=== PATIENT | female | born 1955 | race Two or more races ===

== ENCOUNTER → 2018-01-09 | Outpatient (CLI) | payer MEDICAID ==
[~2018-01-09] MED LIST: ALPR1TAB2 PO; ALPR2TAB2 PO; CYCL1TAB18 PO; LEVO75TA50 PO
[2018-01-09 12:40] VITALS: BP 141/82
[2018-01-09 13:05] VITALS: BP 128/89
[2018-01-09 16:10] LABS: Basophils # (auto) 0 uL; Basophils % (auto) 0.7 % (0.0-2.0); Eosinophils # (auto) 0.1 uL; Eosinophils % (auto) 2.6 % (0.0-7.0); Hematocrit 36.2 % (36.0-46.0); Hemoglobin 12.7 g/dL (12.2-16.2); Lymphocytes # (auto) 1.3 uL; Lymphocytes % (auto) 24.2 % (10.0-50.0); Mean Corpuscular Hemoglobin 31.9 pg (28.0-32.0); Mean Corpuscular Hgb Conc. 35.1 g/dL (32.0-36.0); Monocytes # (auto) 0.4 uL; Monocytes % (auto) 7.3 % (0.0-12.0); Neutrophils # (auto) 3.5 uL; Neutrophils % (auto) 65.2 % (37.0-80.0); Nucleated Red Blood Cells % 0.3 %; Platelet Count (auto) 270 10^3/uL (140-450); Red Blood Cells 3.98 10^6/uL (4.0-5.20); Red Cell Distribution Width 13.3 % (11.8-14.3); White Blood Cell 5.4 10^3/uL (4.4-10.8)
[2018-01-09 16:37] LABS: Albumin 3.3 g/dL (3.4-5.0); BUN/Creatinine Ratio 4.8; Calcium 7.9 mg/dL (8.5-10.1); Magnesium 2.5 mg/dL (1.6-2.6); Potassium 3.5 mmol/L (3.5-5.1)
[2018-01-09 16:40] LABS: Bilirubin, Total 0.3 mg/dL (0.2-1.0); Total Protein 6.8 g/dL (6.4-8.2)
== END | disposition home or self-care (01) ==
LOC: CHF HDHVI 12:43
PROVIDERS: ATTEND Internal Medicine Cardiovascular Disease
DX: E03.9 Hypothyroidism, unspecified (principal); D64.9 Anemia, unspecified; E83.40 Disorders of magnesium metabolism, unspecified; I10 Essential (primary) hypertension; R42 Dizziness and giddiness
CPT/HCPCS: 36415; 80053; 83735; 84443; 85025; G0463

== ENCOUNTER → 2018-10-21 | Outpatient (CLI) | payer MEDICAID | END | disposition home or self-care (01) | LOC: Rad HDHVI 07:57 | PROVIDERS: ATTEND Internal Medicine Cardiovascular Disease | DX: I67.2 Cerebral atherosclerosis (principal); J44.9 Chronic obstructive pulmonary disease, unspecified; J20.0 Acute bronchitis due to Mycoplasma pneumoniae; I63.9 Cerebral infarction, unspecified | CPT/HCPCS: 70450; 93306 ==

== ENCOUNTER → 2018-11-05 | Outpatient (CLI) | payer MEDICAID ==
[~2018-11-05] VITALS: Ht 160 cm; Wt 56.7 kg
[~2018-11-05] MED LIST changes: +ADENOSINE 48 MG in GIVE UN-DILUTED 0 ML IV ONE; +ADENOSINE 90 MG/30 ML INJ IV ONE
== END | disposition home or self-care (01) ==
LOC: Rad HDHVI 07:58
PROVIDERS: ATTEND Internal Medicine Cardiovascular Disease
DX: J44.9 Chronic obstructive pulmonary disease, unspecified (principal); R00.2 Palpitations; I20.0 Unstable angina; R07.9 Chest pain, unspecified; R42 Dizziness and giddiness; I49.5 Sick sinus syndrome; Z95.0 Presence of cardiac pacemaker
CPT/HCPCS: 78452; 93005; 96374; 96375; A9500; J0153

== ENCOUNTER 2019-04-22 20:18 | Emergency (ER) | payer MEDICAID ==
[~2019-04-22] VITALS: Ht 160 cm; Wt 54.0 kg
[~2019-04-22 20:18] MED LIST changes: -ADENOSINE 48 MG in GIVE UN-DILUTED 0 ML IV ONE; -ADENOSINE 90 MG/30 ML INJ IV ONE
[2019-04-22 21:05] LABS: Basophils # (auto) 0.1 uL; Eosinophils # (auto) 0.1 uL; Eosinophils % (auto) 2.7 % (0.0-7.0); Hematocrit 38.8 % (36.0-46.0); Hemoglobin 13.1 g/dL (12.2-16.2); Lymphocytes % (auto) 37.2 % (10.0-50.0); Mean Corpuscular Hemoglobin 30.6 pg (28.0-32.0); Mean Corpuscular Hgb Conc. 33.7 g/dL (32.0-36.0); Mean Corpuscular Volume 90.9 fL (80.0-100.0); Monocytes # (auto) 0.4 uL; Monocytes % (auto) 8.5 % (0.0-12.0); Neutrophils # (auto) 2.7 uL; Neutrophils % (auto) 50.6 % (37.0-80.0); Nucleated Red Blood Cells % 0.1 %; Platelet Count (auto) 219 10^3/uL (140-450); Red Blood Cells 4.26 10^6/uL (4.0-5.20); Red Cell Distribution Width 12.9 % (11.8-14.3); White Blood Cell 5.3 10^3/uL (4.4-10.8)
[2019-04-22 21:19] LABS: Albumin 3.8 g/dL (3.4-5.0); Anion Gap 5 (5-15); Blood Urea Nitrogen 9 mg/dL (7-18); Carbon Dioxide 29 mmol/L (21-32); Chloride 109 mmol/L (98-107); Glucose 102 mg/dL (74-106); Magnesium 2.4 mg/dL (1.6-2.6); Potassium 3.7 mmol/L (3.5-5.1); Sodium 143 mmol/L (136-145)
[2019-04-22 21:26] LABS: Alanine Aminotransferase 15 U/L (13-56); Alkaline Phosphatase 85 U/L (45-117); Aspartate Aminotransferase 18 U/L (15-37); BUN/Creatinine Ratio 7.8; Bilirubin, Total 0.4 mg/dL (0.2-1.0); GFR African American 62 mL/min; GFR Non-African American 51 mL/min; Total Protein 7.1 g/dL (6.4-8.2)
[2019-04-23 03:00] VITALS: BP 123/68
== END 2019-04-23 03:45 | disposition home or self-care (01) ==
LOC: ER 20:18
DX: T82.897A Other specified complication of cardiac prosthetic devices, implants and grafts, initial encounter (principal); R53.1 Weakness; J44.9 Chronic obstructive pulmonary disease, unspecified; I10 Essential (primary) hypertension; Z90.49 Acquired absence of other specified parts of digestive tract; Z90.710 Acquired absence of both cervix and uterus; Z88.0 Allergy status to penicillin; Z88.6 Allergy status to analgesic agent; Z79.899 Other long term (current) drug therapy; W86.8XXA Exposure to other electric current, initial encounter; Y93.89 Activity, other specified; Y92.89 Other specified places as the place of occurrence of the external cause; Y99.8 Other external cause status
CPT/HCPCS: 36415; 71046; 80053; 83735; 83880; 84484; 85025; 93005

== ENCOUNTER → 2019-11-04 | Outpatient (CLI) | payer MEDICAID | END | disposition home or self-care (01) | LOC: Rad HDHVI 08:56 | PROVIDERS: ATTEND Internal Medicine Cardiovascular Disease | DX: I11.0 Hypertensive heart disease with heart failure (principal); I50.23 Acute on chronic systolic (congestive) heart failure; J44.9 Chronic obstructive pulmonary disease, unspecified | CPT/HCPCS: 93306 ==

== ENCOUNTER → 2020-03-30 | Outpatient (CLI) | payer MEDICAID ==
[~2020-03-30] MED LIST changes: +AMLO5TAB15 PO; +ASPI-543 PO; +CYCL10TA6 PO; -CYCL1TAB18 PO; +CYCL5TAB PO; +PANT40TA2 PO
[2020-03-30 10:22] VITALS: BP 132/80
--- NOTE | 2020-03-30 10:22 | NUR ---
PT. TO CLINIC FOR PRE OP CXR, LABS, AND EKG. EKG SHOWS A/V PACED RHYTHM WITH NO ECTOPY. VSS
--- NOTE | 2020-03-30 10:40 | NUR ---
Pre-Op Discharge Summary: See e-MAR for any medications given for this visit. Pre-op orders received and carried out per MD of EKG, LABS and chest xrays. Patient given a copy of EKG with instructions to go to [facility] out patient for further follow up care.
[2020-03-30 10:44] VITALS: BP 125/82
[2020-03-30 11:58] LABS: Basophils # (auto) 0 10 ^3/uL (0-0.2); Eosinophils # (auto) 0.1 10 ^3/uL (0-0.8); Eosinophils % (auto) 2.6 % (0.0-7.0); Hematocrit 40.7 % (36.0-46.0); Hemoglobin 13.7 g/dL (12.2-16.2); Lymphocytes # (auto) 1.4 10 ^3/uL (0.4-5.4); Lymphocytes % (auto) 26.7 % (10.0-50.0); Mean Corpuscular Hemoglobin 30.1 pg (28.0-32.0); Mean Corpuscular Hgb Conc. 33.6 g/dL (32.0-36.0); Mean Corpuscular Volume 89.7 fL (80.0-100.0); Monocytes # (auto) 0.4 10 ^3/uL (0-1.3); Monocytes % (auto) 7.5 % (0.0-12.0); Neutrophils # (auto) 3.2 10 ^3/uL (1.6-8.6); Neutrophils % (auto) 62.2 % (37.0-80.0); Nucleated Red Blood Cells % 0.1 %; Platelet Count (auto) 263 10^3/uL (140-450); Red Blood Cells 4.54 10^6/uL (4.0-5.20); Red Cell Distribution Width 12.5 % (11.8-14.3); White Blood Cell 5.2 10^3/uL (4.4-10.8)
[2020-03-30 12:13] LABS: Calcium 8.3 mg/dL (8.5-10.1); Potassium 3.2 mmol/L (3.5-5.1)
[2020-03-30 12:17] LABS: BUN/Creatinine Ratio 8.5
[2020-03-30 12:18] LABS: INR 0.96 (0.9-1.15); Partial Thromboplastin Time 26.2 sec (23.0-31.2)
== END | disposition home or self-care (01) ==
LOC: Rad HDHVI 09:57
PROVIDERS: ATTEND Internal Medicine Cardiovascular Disease
DX: Z01.812 Encounter for preprocedural laboratory examination (principal); I70.0 Atherosclerosis of aorta; Z95.0 Presence of cardiac pacemaker
CPT/HCPCS: 36415; 71046; 80048; 85025; 85610; 85730; 93005; G0463

== ENCOUNTER 2020-04-05 11:56 | Day surgery (SDC) | payer MEDICAID ==
[~2020-04-05] VITALS: Ht 160 cm; Wt 53.1 kg
[~2020-04-05 11:56] MED LIST changes: -ALPR2TAB2 PO
[2020-04-05] MEDS ORDERED: PHENYLEPHRINE HCL 10 MG/ML VL ONE (12:50)
[2020-04-05] MEDS ORDERED: ANGIOMAX 250 MG VIAL IV ONE (12:50)
[2020-04-05] MEDS ORDERED: GLYCOPYRROLATE 0.2 MG/ML 1ML VIAL ONE (12:51)
[2020-04-05] MEDS ORDERED: SODIUM CHL 0.9% 0 ML ONE (12:51)
[2020-04-05] MEDS ORDERED: IODIXANOL 320MG/ML 100ML BTL IV ONE (12:52)
[2020-04-05] MEDS ORDERED: LIDOCAINE 2%HCL (LOCAL ANESTH.) INJ 20ML MDV ONE (12:52)
[2020-04-05] MEDS ORDERED: ACETAMINOPHEN 500 MG TAB PO PRN (14:30)
[2020-04-05] MEDS ORDERED: ONDANSETRON HCL 4 MG/2 ML VIAL IV PRN (14:30)
== END 2020-04-05 16:34 | disposition home or self-care (01) ==
LOC: CATH 11:56
PROVIDERS: ATTEND Internal Medicine Cardiovascular Disease
DX: I65.21 Occlusion and stenosis of right carotid artery (principal); I62.9 Nontraumatic intracranial hemorrhage, unspecified; I10 Essential (primary) hypertension; I25.2 Old myocardial infarction; J44.9 Chronic obstructive pulmonary disease, unspecified; F32.9 Major depressive disorder, single episode, unspecified; F41.9 Anxiety disorder, unspecified; R09.1 Pleurisy; Z20.828 Contact with and (suspected) exposure to other viral communicable diseases; Z98.890 Other specified postprocedural states; Z79.899 Other long term (current) drug therapy; Z88.0 Allergy status to penicillin; Z88.5 Allergy status to narcotic agent; Z88.8 Allergy status to other drugs, medicaments and biological substances; Z90.710 Acquired absence of both cervix and uterus; Z80.0 Family history of malignant neoplasm of digestive organs
CPT/HCPCS: C1760; C1769; C1894; J1644; Q9967; U0003; 36224; 99152

== ENCOUNTER → 2020-11-11 | Outpatient (CLI) | payer MEDICAID ==
[~2020-11-11] MED LIST changes: +AMLO-489 PO; -AMLO5TAB15 PO; +LEV75T PO; -LEVO75TA50 PO
== END | disposition home or self-care (01) ==
LOC: Rad HDHVI 15:45
PROVIDERS: ATTEND Internal Medicine Cardiovascular Disease
DX: R00.2 Palpitations (principal); R07.89 Other chest pain
CPT/HCPCS: 93306

== ENCOUNTER → 2020-11-28 | Outpatient (CLI) | payer MEDICAID ==
[~2020-11-28] VITALS: Ht 157.5 cm; Wt 51.3 kg
[~2020-11-28] MED LIST changes: +ADENOSINE 6 MG/2 ML INJ IV ONE; +ADENOSINE 90 MG/30 ML INJ IV ONE; +D5W 5% IV SCH; +DIPYRIDAMOLE (5MG/ML) 10 ML VIAL IV ONE; +DIPYRIDAMOLE IV SCH
== END | disposition home or self-care (01) ==
LOC: Rad HDHVI 13:33
PROVIDERS: ATTEND Internal Medicine Cardiovascular Disease
DX: I48.0 Paroxysmal atrial fibrillation (principal); I10 Essential (primary) hypertension; E78.00 Pure hypercholesterolemia, unspecified; I25.2 Old myocardial infarction; Z95.0 Presence of cardiac pacemaker; Z82.49 Family history of ischemic heart disease and other diseases of the circulatory system
CPT/HCPCS: 78452; 93005; 96374; 96375; A9500; J1245; J0153

== ENCOUNTER 2021-02-07 18:44 | Emergency (ER) | payer MEDICAID ==
[~2021-02-07] VITALS: Ht 160 cm; Wt 49.9 kg
[2021-02-07 18:44] VITALS: BP 168/98
[~2021-02-07 18:44] MED LIST changes: -ADENOSINE 6 MG/2 ML INJ IV ONE; -ADENOSINE 90 MG/30 ML INJ IV ONE; -D5W 5% IV SCH; -DIPYRIDAMOLE (5MG/ML) 10 ML VIAL IV ONE; -DIPYRIDAMOLE IV SCH
== END 2021-02-07 19:38 | disposition left against medical advice (07) ==
LOC: ER 18:45
DX: R51.9 Headache, unspecified (principal); R42 Dizziness and giddiness; Z53.21 Procedure and treatment not carried out due to patient leaving prior to being seen by health care provider; W20.8XXA Other cause of strike by thrown, projected or falling object, initial encounter; Y93.89 Activity, other specified; Y92.89 Other specified places as the place of occurrence of the external cause; Y99.8 Other external cause status

== ENCOUNTER → 2023-04-22 | Outpatient (CLI) | payer MEDICARE, MEDICAID ==
[~2023-04-22] MED LIST changes: -AMLO-489 PO; +AMLO1TAB22 PO; +CYCL-837 PO; +CYCL-839 PO; -CYCL10TA6 PO; -CYCL5TAB PO
== END | disposition home or self-care (01) ==
LOC: Rad HDHVI 08:05
PROVIDERS: ATTEND Internal Medicine Cardiovascular Disease
DX: I08.1 Rheumatic disorders of both mitral and tricuspid valves (principal); I10 Essential (primary) hypertension; E78.5 Hyperlipidemia, unspecified
CPT/HCPCS: 93306

== ENCOUNTER → 2024-06-22 | Outpatient (CLI) | payer MEDICARE, MEDICAID | END | disposition home or self-care (01) | LOC: Rad HDHVI 08:31 | PROVIDERS: ATTEND Internal Medicine Cardiovascular Disease | DX: I11.0 Hypertensive heart disease with heart failure (principal); I50.33 Acute on chronic diastolic (congestive) heart failure | CPT/HCPCS: 93880 ==

== ENCOUNTER → 2024-08-31 | Outpatient (CLI) | payer MEDICARE, MEDICAID ==
[~2024-08-31] MED LIST changes: +LEVO50TA7 PO; +OLME5TAB24 PO; +RIVA10TA PO; +SERT-206 PO; +SOTA80TA PO
[2024-08-31 09:25] VITALS: BP 102/71; PULSE 71; RESP 16; O2SAT 98
[2024-08-31 09:39] VITALS: BP 104/68; PULSE 65; RESP 16; O2SAT 98
--- NOTE | 2024-08-31 12:17 | DVH ---
XY CHEST TWO VIEWS ROUTINE CLINICAL HISTORY: PRE OP COMPARISON: CHEST TWO VIEWS ROUTINE on DOS: 03/30/20 TECHNIQUE: Frontal and lateral view of the chest was obtained FINDINGS: Lines and Tubes: Left-sided pacemaker Lungs: No focal consolidation. Pleura: No effusion. No pneumothorax. Cardiomediastinal contours: Unremarkable Bones: No acute osseous abnormality. IMPRESSION: No acute cardiopulmonary disease.
== END | disposition home or self-care (01) ==
LOC: Rad HDHVI 08:46
PROVIDERS: ATTEND Internal Medicine Cardiovascular Disease
DX: Z01.818 Encounter for other preprocedural examination (principal); I49.8 Other specified cardiac arrhythmias; I50.33 Acute on chronic diastolic (congestive) heart failure; I48.0 Paroxysmal atrial fibrillation; Z95.0 Presence of cardiac pacemaker
CPT/HCPCS: 71046; 93005; G0463

== ENCOUNTER 2024-09-03 07:06 | Day surgery (SDC) | payer MEDICARE, MEDICAID ==
[2024-08-31 11:39] LABS: Basophils # (auto) 0.2 10 ^3/uL (0-0.2); Basophils % (auto) 2.4 % (0.0-2.0); Eosinophils # (auto) 0.2 10 ^3/uL (0-0.8); Eosinophils % (auto) 2.3 % (0.0-7.0); Hematocrit 41.2 % (36.0-46.0); Hemoglobin 14.2 g/dL (12.2-16.2); Lymphocytes # (auto) 2.3 10 ^3/uL (0.4-5.4); Lymphocytes % (auto) 27.2 % (10.0-50.0); Mean Corpuscular Hemoglobin 32.4 pg (28.0-32.0); Mean Corpuscular Hgb Conc. 34.4 g/dL (32.0-36.0); Mean Corpuscular Volume 94.2 fL (80.0-100.0); Monocytes # (auto) 0.6 10 ^3/uL (0-1.3); Monocytes % (auto) 6.6 % (0.0-12.0); Neutrophils # (auto) 5.2 10 ^3/uL (1.6-8.6); Neutrophils % (auto) 61.5 % (37.0-80.0); Platelet Count (auto) 299 10^3/uL (140-450); Red Blood Cells 4.37 10^6/uL (4.0-5.20); White Blood Cell 8.5 10^3/uL (4.4-10.8)
[2024-08-31 11:53] LABS: Chloride 104 mmol/L (98-107); INR 0.97 (0.9-1.15); Partial Thromboplastin Time 28.7 SEC (24.5-34.5); Potassium 3.9 mmol/L (3.5-5.1); Prothrombin Time 10.3 sec (9.3-11.8); Sodium 136 mmol/L (136-145)
[2024-08-31 11:54] LABS: Anion Gap 6 (5-15); Calcium 9.8 mg/dL (8.7-10.4); Carbon Dioxide 26 mmol/L (20-31)
[2024-08-31 11:59] LABS: BUN/Creatinine Ratio 8.9 (10.0-20.0); Blood Urea Nitrogen 17 mg/dL (9-23)
[2024-08-31 12:00] LABS: Glucose 119 mg/dL (74-106)
[~2024-09-03] VITALS: Ht 160 cm; Wt 54.9 kg
[2024-09-03] VITALS (9 sets, daily range): BP systolic 131–153; BP diastolic 82–99; PULSE 65–66; RESP 12–17; TEMP 98.6; O2SAT 96–100
[~2024-09-03 07:06] MED LIST changes: -AMLO1TAB22 PO; -ASPI-543 PO; -CYCL-837 PO; -CYCL-839 PO; -LEV75T PO
[2024-09-03] MEDS ORDERED: ANGIOMAX 250 MG VIAL IV ONE (08:16)
[2024-09-03] MEDS ORDERED: LIDOCAINE 2%HCL (LOCAL ANESTH.) INJ 20ML MDV ONE (08:17)
[2024-09-03] MEDS ORDERED: MIDAZOLAM HCL 2MG/2ML 2ml VIAL (1mg/ml) ONE (08:17)
[2024-09-03] MEDS ORDERED: fentaNYL CITRATE 100 MCG/2 ML VL ONE (08:17)
[2024-09-03] MEDS ORDERED: IOHEXOL 350 MG/ML 100ML IJ ONE (08:46)
--- NOTE | 2024-09-03 08:54 | DVHDS ---
DATE OF DISCHARGE: 09/03/2024 DISCHARGE DIAGNOSES: * Atrial fibrillation. * Sick sinus syndrome. * Hypercoagulable state. HOSPITAL COURSE: Coronary angiography failed to demonstrate any significant epicardial disease. The patient's EF is slightly diminished with EF around 45%-50% of the LVEDP of 5 mmHg with no gradient across the aortic valve. At this time, I believe, the patient is pacing is the reason why the patient has low EF, but at this time no further catheter-based intervention is warranted. The patient is stable. Discharged home. Follow up with me in 1 week. Stable at the time of discharge. Activity, as instructed. Arturo Agee MD SA/ABDULAZIZ TID: [id number] RECEIPT: [id number]
--- NOTE | 2024-09-03 08:58 | DVHOP ---
DATE OF SURGERY: 09/03/2024 PROCEDURE PERFORMED: Selective left and right coronary angiography, ventriculogram, right iliac angiography, conscious sedation. DESCRIPTION OF PROCEDURE: The patient was prepped and draped in sterile conditions. A 1% Xylocaine was used to anesthetize the right groin. Using a Cook needle, right femoral artery was engaged with Seldinger technique, a 6-Gibraltarian sheath in the right femoral artery. Using 6-Gibraltarian JL4 catheter and 6-Gibraltarian JR4 catheter, selective left and right coronary angiographies were performed. Using 6-Gibraltarian pigtail catheter, ventriculogram was done. Right iliac angiography site was closed using the Angio-Seal device. RESULTS: * Left main patent left anterior descending artery without any flow restrictive lesion. * Circumflex dominant vessel without any flow restrictive lesion. * Right coronary artery nondominant vessel less than 2 mm in size. No flow restrictive lesion. * Left ventricular function is mild global hypokinesis with an estimated EF of around 45%-50% with an LVEDP of 5 mmHg. No gradient across the aortic valve with left ventricular systolic pressure of 126. At this time, no catheter-based or surgical intervention is required. Conservative medical management. We will continue to follow the patient. Arturo Agee MD SA/RACHEAL TID: [id number] RECEIPT: [id number]
--- NOTE | 2024-09-03 09:09 | DVHHP ---
ADMIT DATE: 09/03/2024 HISTORY OF PRESENT ILLNESS: The patient who is 68 years old with history of chest pain, abnormal stress test, low ejection fraction EF around 45%-50%. The patient has ongoing shortness of breath and chest pain and because of inferior wall reversibility, it was felt that the patient should undergo coronary angiography. Risks and benefits were explained to the patient. PERTINENT MEDICAL HISTORY: Significant for: * Organic heart disease. A. Sick sinus syndrome. B. Status post dual-chamber permanent pacemaker implantation. C. History of paroxysmal atrial fibrillation, currently on anticoagulation secondary to hypercoagulable state and on sotalol. The patient now is in sinus rhythm. * Reflux esophagitis. * History of hypothyroidism. * The patient also has a remote history of tobacco use. Clinically, the patient is doing well. She denies any fever, chills, melena, hematochezia, hematemesis, hemoptysis, or hematuria. Denies history of CVA. Denies any history of movement disorder or any metabolic encephalopathy. Denies any dementia. Denies any history of GI symptoms such as irritable bowel syndrome or inflammatory bowel disease, diarrhea, or constipation. Denies any history of liver disease. However, the patient has chronic renal failure with a creatinine of 1.9, renal insufficiency, chronic kidney disease stage 3. PHYSICAL EXAMINATION: VITAL SIGNS: Blood pressure is 124/60. Pulse is 70 and regular. O2 saturation 98% on room air. HEENT: Pupils are reactive. Funduscopic exam shows no AV nicking, no exudates, no papilledema. Sclerae anicteric. Extraocular muscles are intact. No JVD appreciated. Carotid pulses are 2+ symmetrical. No cervical adenopathy. No supraclavicular adenopathy. Oral mucosa moist. PULMONARY: Clear to auscultation. No rhonchi. No wheezes. No egophony. CARDIOVASCULAR: Regular rate without S3, without S4. PMI is nondisplaced. There is a soft 2/6 systolic murmur along the left sternal border. ABDOMEN: Soft, nontender. Normal bowel sounds. Stool guaiac negative. Liver approximately 5 cm. No epigastric tenderness. No suprapubic tenderness. EXTREMITIES: 1+ pulses. NEUROLOGIC: The patient is intact. Thus, the patient has chest pain, shortness of breath, history of paroxysmal atrial fibrillation, diminished left ventricular ejection fraction (EF around 45%-50%). The patient is now to undergo left heart catheterization. Further recommendations after the angiogram. Arturo Agee MD SA/ROX/DYAN TID: [id number] RECEIPT: [id number]
[2024-09-03] MEDS: KETOROLAC TROMETH 30 MG/ML 1ML VIAL IV ONE (10:18)
[2024-09-03] MEDS: ACETAMINOPHEN 650 mg PER 20.3 mL UD PO ONE (10:24)
[2024-09-03] MEDS: ACETAMINOPHEN 325 MG TAB PO ONE ×2 (10:24→10:25)
== END 2024-09-03 11:22 | disposition home or self-care (01) ==
LOC: CATH 07:06
PROVIDERS: ATTEND Internal Medicine Cardiovascular Disease
DX: I25.10 Atherosclerotic heart disease of native coronary artery without angina pectoris (principal); R94.39 Abnormal result of other cardiovascular function study; I49.5 Sick sinus syndrome; I48.0 Paroxysmal atrial fibrillation; N18.30 Chronic kidney disease, stage 3 unspecified; E03.9 Hypothyroidism, unspecified; K21.00 Gastro-esophageal reflux disease with esophagitis, without bleeding; Z79.01 Long term (current) use of anticoagulants; Z79.899 Other long term (current) drug therapy; Z95.0 Presence of cardiac pacemaker; Z87.891 Personal history of nicotine dependence; Z88.0 Allergy status to penicillin; Z88.5 Allergy status to narcotic agent; Z88.8 Allergy status to other drugs, medicaments and biological substances
CPT/HCPCS: 36415; 80048; 85025; 85610; 85730; 93458; C1760; C1894; J1644; J1885; J2250; J3010; Q9967; 99152

== ENCOUNTER 2025-01-29 08:55 | Outpatient (CLI) | payer MEDICARE, MEDICAID ==
[~2025-01-29] VITALS: Ht 160 cm; Wt 50.8 kg
[2025-01-29] MEDS ORDERED: ADENOSINE 90 MG/30 ML INJ IV ONE (09:22)
[2025-01-29] MEDS ORDERED: ADENOSINE 43 MG in GIVE UN-DILUTED 0 ML IV ONE (11:45)
== END 2025-01-29 17:00 | disposition home or self-care (01) ==
LOC: Rad HDHVI 08:55
PROVIDERS: ATTEND Internal Medicine Cardiovascular Disease
DX: I25.10 Atherosclerotic heart disease of native coronary artery without angina pectoris (principal); I11.0 Hypertensive heart disease with heart failure; I50.30 Unspecified diastolic (congestive) heart failure; R06.02 Shortness of breath; J44.9 Chronic obstructive pulmonary disease, unspecified; I25.2 Old myocardial infarction; E78.00 Pure hypercholesterolemia, unspecified; R00.2 Palpitations; I49.5 Sick sinus syndrome; F17.200 Nicotine dependence, unspecified, uncomplicated; Z95.0 Presence of cardiac pacemaker
CPT/HCPCS: 78452; 93017; A9500; J0153